=== PATIENT | male | born 1950 | race Caucasian/White ===

== ENCOUNTER 2020-12-27 09:11 | Emergency (ER) | payer MEDICARE, SELFPAY ==
[2020-12-27 09:14] VITALS: BP 155/137; PULSE 69; RESP 16; TEMP 35.4; O2SAT 95; BMI 47.2
[2020-12-27 10:04] LABS: Mucous, Urine 0 SEEN /hpf (<or=2+)
[2020-12-27 10:12] VITALS: BP 140/85
[2020-12-27 10:14] LABS: Glucose, Dipstick Normal (Normal); Ketone-Dipstick Negative (Negative); Leukocyte Esterase-Dipstick 100 /ul (Negative); Nitrite-Dipstick Negative (Negative); Occult Blood-Urine 250 /ul (Negative); Protein-Dipstick 500 mg/dl (Negative); Urine Bilirubin Dipstick Negative (Negative); Urine Urobilinogen Normal (Normal)
[2020-12-27 10:14] LABS: Absolute Lymphocyte Count 1.41 X10^3/uL (0.83-4.51); Absolute Neutrophil Count 6.2 X10^3/uL (2.0-7.7); Basophil# 0.05 X10^3/uL; Basophil% 0.6 % (0-1); Eosinophil# 0.21 X10^3/uL; Eosinophils% 2.4 % (0-5); Hematocrit 42.9 % (40-54); Hemoglobin 14.6 g/dL (13.0-16.5); Lymphocyte # 1.41 X10^3/ul (0.83-4.51); Lymphocyte % 16.4 % (19-41); Mean Corpuscular Hgb 34.1 pg (27.0-32.0); Mean Corpuscular Volume 100.2 fL (80-94); Mean Platelet Vol. 9.2 fl (6.2-12.0); Monocyte# 0.68 X10^3/uL; Monocyte% 7.9 % (0-10); NRBC Flagged by Analyzer 0 % (0-5); Neutrophil # 6.17 X10^3/uL (2.7-7.7); Platelet Count 175 K/mm3 (150-450); RBC Distribution Width CV 13.2 % (11.6-14.6); RBC Distribution Width SD 48.5 fl (35.1-43.9); Red Blood Count 4.28 M/mm3 (4.6-6.2); White Blood Count 8.6 K/mm3 (4.4-11.0)
[2020-12-27 10:15] VITALS: BP 138/68; PULSE 71; RESP 16; TEMP 36.7
[2020-12-27 10:17] LABS: Color, Urine Red (Yellow); Urine Clarity Turbid (Clear)
--- NOTE | 2020-12-27 10:17 | NURSING ---
PER LAB, BLUE TOP TOO SHORT
[2020-12-27 10:19] LABS: Bacteria RARE /hpf (None Seen); Red Blood Cells-Urine > 100 SEEN /hpf (0-5); Squamous Epithelial Cells - UA 0-5 SEEN /hpf (0-5); White Blood Cells 0-5 SEEN /hpf (0-5)
[2020-12-27 10:27] LABS: ALB/GLOB Ratio 0.8 RATIO (0.9-2.4); AST(SGOT) 52 U/L (15-37); Alanine Aminotransfer ALT/SGPT 131 U/L (16-61); Albumin, Serum 3.4 g/dL (3.2-5.0); Alkaline Phosphatase 74 U/L (45-117); Anion Gap 6 (5-15); BUN 11 mg/dL (7-18); BUN/Creat Ratio 10.3 RATIO (10-20); Calcium,Total 8.7 mg/dL (8.5-10.1); Chloride 105 mmol/L (98-107); Creatinine, Serum 1.07 mg/dL (0.70-1.30); EST Glomerular Filtration Rate 73 mL/min (>60); Est Glom Filt Rate - Afr Amer 88 mL/min (>60); Globulin 4.3 g/dL (2.2-4.2); Glucose 120 mg/dL (74-106); Potassium 4.6 mmol/L (3.5-5.1); Protein, Total 7.7 g/dL (6.4-8.2); Sodium Level 139 mmol/L (136-145)
--- NOTE | 2020-12-27 10:32 | EDS_ITS ---
HPI History of Present Illness Chief Complaint: Henriquez C/O Informant: patient Pain Onset: Yesterday Context: Gradual Onset Timing: Continuous Worsened by: Nothing Relieved by: Nothing Narrative Narrative: Patient presents with bleeding from his Henriquez catheter that became worse today. Patient had a Henriquez catheter placed recently. Patient states his urologist told him that he needed to keep the catheter in for 1 week. Patient states he can feel the catheter moving. Patient is on anticoagulants for protein S deficiency. Patient admits to subjective fevers. Patient denies any nausea or vomiting. Patient admits to some pain over the suprapubic area as well as the urethra. [facility] Medical History (Updated 12/27/20 @ 11:[address] Hugo Bernstein DO) Coronary artery disease Hypercholesterolemia Hypertension Protein S deficiency Home Medications Eliquis 5 mg PO/SL BID 12/27/20 [History Last Taken Unknown] apixaban [Eliquis] 5 mg PO BID 12/27/20 [History Last Taken Unknown] carvedilol 25 mg PO BID 12/27/20 [History Last Taken Unknown] ezetimibe 10 mg PO DAILY 12/27/20 [History Last Taken Unknown] furosemide 20 mg PO DAILY 12/27/20 [History Last Taken Unknown] icosapent ethyl 1 g PO DAILY 12/27/20 [History Last Taken Unknown] levothyroxine 100 mcg PO DAILY 12/27/20 [History Last Taken Unknown] omeprazole 20 mg PO/SL DAILY 12/27/20 [History Last Taken Unknown] tamsulosin 0.4 mg PO/SL BID 12/27/20 [History Last Taken Unknown] trazodone 50 mg PO/SL QHS 12/27/20 [History Last Taken Unknown] valsartan 160 mg PO BID 12/27/20 [History Last Taken Unknown] Allergy/AdvReac Type Severity Reaction Status Date / Time Penicillins [PCN] Allergy PT UNSURE Verified 12/27/20 10:24 OF REACTION sulfamethoxazole Allergy Rash Verified 12/27/20 10:24 [From Bactrim] trimethoprim [From Bactrim] Allergy Rash Verified 12/27/20 10:24 Surgical History (Updated 12/27/20 @ 10:[address] Hugo Bernstein DO) History of abdominal aortic aneurysm repair S/P aneurysm repair Social History Smoking Status: Former smoker ROS ROS ED Constitutional Constitutional ED: Denies chills or fever(s) Eyes Eyes: Denies blurry vision or change in vision ENT ENT ED: Denies rhinorrhea or sore throat Cardiovascular Cardiovascular: Denies chest pain or palpitations Respiratory/Chest Respiratory/Chest: Denies cough or dyspnea Gastrointestinal Gastrointestinal: Denies nausea or vomiting Genitourinary Genitourinary ED: Reports hematuria Musculoskeletal Musculoskeletal: Denies back pain or neck pain Integumentary Denies abscess or rash Neurologic Neurologic: Denies headache(s) or weakness Allergic/Immunologic Allergic/Immunologic ED: Denies mouth swelling or urticaria EXAM Physical Exam Const Vital Signs: 12/27/20 09:14 12/27/20 10:12 12/27/20 10:15 Temperature 95.7 F L 98.1 F Temperature Source Temporal Temporal Pulse Rate 69 71 Respiratory Rate 16 16 Blood Pressure 155/137 H 140/85 H 138/68 H Blood Pressure Mean 143 103 91 Pulse Ox 95 Oxygen Delivery Method Room Air Positive well nourished and well developed General Appearance ED: well developed HEENT Reports moist mucous membranes Neck supple and no JVD Resp normal respiratory effort and clear to auscultation bilaterally Cardio regular rate, regular rhythm and no murmurs GI normal to inspection, nondistended, normoactive bowel sounds and non-distended GI Narrative: There is some mild suprapubic tenderness. There is no rebound or guarding noted. Palpation: soft; Negative for guarding Rectal Exam: tenderness Penis: normal penis and circumcised Meatus: meatus normal Extremity normal to inspection General Extremety ED: Negative for edema or tenderness General Extremity: Negative for edema Neuro oriented x3, CN's II-XII intact bilaterally and no sensory deficits noted Sensorium / Orientation: alert Motor Exam: strength 5/5 throughout Psych mental status grossly normal Skin no rashes or lesions noted MDM MDM MDM Narrative Medical decision making narrative: Henriquez catheter was irrigated. There is a small clot that was removed. Patient states he still feels some clots passed through. There is no obstruction however. There is no evidence of urinary tract infection. CBC was within normal limits. Comprehensive metabolic profile was within normal limits. PT with INR and PTT were normal. Patient was feeling better on reevaluation. Patient was instructed to follow-up with his primary care physician and urologist in 5 to 7 days. Patient understood and was agreeable with the plan. All questions were answered. Lab Data Attestation: I reviewed the patient's lab results. Labs: Laboratory Results - last 24 hr 12/27/20 12/27/20 12/27/20 10:00 10:03 10:03 WBC 8.6 RBC 4.28 L Hgb 14.6 Hct 42.9 MCV 100.2 H MCH 34.1 H MCHC 34.0 RDW Std Deviation 48.5 H RDW Coeff of [place] 13.2 Plt Count 175 MPV 9.2 Immature Gran % (Auto) 0.700 Neut % (Auto) 72.0 H Lymph % (Auto) 16.4 L [place] % (Auto) 7.9 Eos % (Auto) 2.4 Baso % (Auto) 0.6 Absolute Neuts (auto) 6.2 Absolute Lymphs (auto) 1.41 Nucleated RBC % 0 PT Cancelled INR Cancelled APTT Cancelled Sodium Potassium Chloride Carbon Dioxide Anion Gap BUN Creatinine Estim Creat Clear Calc Est GFR (MDRD) Af Amer Est GFR (MDRD) Non-Af BUN/Creatinine Ratio Glucose Calcium Total Bilirubin AST ALT Alkaline Phosphatase Total Protein Albumin Globulin Albumin/Globulin Ratio Urine Color Red Urine Clarity Turbid Urine pH 7.0 Ur Specific [place] 1.010 Urine Protein 500 H Urine Glucose (UA) Normal Urine Ketones Negative Urine Occult Blood 250 H Urine Nitrite Negative Urine Bilirubin Negative Urine Urobilinogen Normal Ur Leukocyte Esterase 100 H Urine RBC > 100 SEEN Urine WBC 0-5 SEEN Ur Squamous Epith Cells 0-5 SEEN Urine Bacteria RARE Urine Mucus 0 SEEN 12/27/20 12/27/20 10:03 10:40 WBC RBC Hgb Hct MCV MCH MCHC RDW Std Deviation RDW Coeff of [place] Plt Count MPV Immature Gran % (Auto) Neut % (Auto) Lymph % (Auto) [place] % (Auto) Eos % (Auto) Baso % (Auto) Absolute Neuts (auto) Absolute Lymphs (auto) Nucleated RBC % PT 14.8 INR 1.2 APTT 31.2 Sodium 139 Potassium 4.6 Chloride 105 Carbon Dioxide 28.0 Anion Gap 6 BUN 11 Creatinine 1.07 Estim Creat Clear Calc 58.80 Est GFR (MDRD) Af Amer 88 Est GFR (MDRD) Non-Af 73 BUN/Creatinine Ratio 10.3 Glucose 120 H Calcium 8.7 Total Bilirubin 0.70 AST 52 H ALT 131 H Alkaline Phosphatase 74 Total Protein 7.7 Albumin 3.4 Globulin 4.3 H Albumin/Globulin Ratio 0.8 L Urine Color Urine Clarity Urine pH Ur Specific [place] Urine Protein Urine Glucose (UA) Urine Ketones Urine Occult Blood Urine Nitrite Urine Bilirubin Urine Urobilinogen Ur Leukocyte Esterase Urine RBC Urine WBC Ur Squamous Epith Cells Urine Bacteria Urine Mucus Discharge Plan Triage Chief Complaint: Henriquez C/O ED Provider: Hugo Bernstein Dx/Rx/DC Orders Clinical Impression: Hematuria, Encounter for Henriquez catheter fitting and adjustment Instructions: ED Henriquez Catheter, Care, ED Hematuria Prescriptions: No Action carvedilol 25 mg tablet 25 mg PO BID RF: 0 levothyroxine 100 mcg tablet 100 mcg PO DAILY RF: 0 furosemide 20 mg tablet 20 mg PO DAILY RF: 0 valsartan 160 mg tablet 160 mg PO BID RF: 0 ezetimibe 10 mg tablet 10 mg PO DAILY RF: 0 icosapent ethyl 1 gram capsule 1 g PO DAILY RF: 0 Eliquis 5 mg tablet 5 mg PO BID RF: 0 Eliquis 5 mg PO/SL BID RF: 0 omeprazole 20 mg PO/SL DAILY RF: 0 tamsulosin 0.4 mg PO/SL BID RF: 0 trazodone 50 mg PO/SL QHS RF: 0 Referrals: JJ JAMES [Other] - 3-5 Days Disposition Disposition: Home, Self Care
[2020-12-27 10:59] LABS: International Normalized Ratio 1.2; Partial Thromboplast Time 31.2 Seconds (24.1-36.2); Prothrombin Time (Protime)PT. 14.8 SECONDS (11.7-14.9)
[2020-12-27 11:52] VITALS: BP 144/92; PULSE 58; RESP 16
== END 2020-12-27 12:00 | disposition home or self-care (01) ==
PROVIDERS: Emergency Provider Emergency Medicine
DX: T83.84XA Pain due to genitourinary prosthetic devices, implants and grafts, initial encounter (principal); T83.83XA Hemorrhage due to genitourinary prosthetic devices, implants and grafts, initial encounter; Y84.6 Urinary catheterization as the cause of abnormal reaction of the patient, or of later complication, without mention of misadventure at the time of the procedure; Y92.9 Unspecified place or not applicable; D68.59 Other primary thrombophilia; I25.10 Atherosclerotic heart disease of native coronary artery without angina pectoris; I10 Essential (primary) hypertension; E78.00 Pure hypercholesterolemia, unspecified; Z79.01 Long term (current) use of anticoagulants; Z79.890 Hormone replacement therapy; Z79.899 Other long term (current) drug therapy; Z87.891 Personal history of nicotine dependence
CPT/HCPCS: 36415; 80053; 81001; 85025; 85610; 85730; 99282